=== PATIENT | female | born 1995 | race Caucasian/White ===

== ENCOUNTER 2018-11-20 22:43 | Emergency (ER) | payer SELFPAY, OTHER ==
[2018-11-21] MEDS: ONDANSETRON (ODT) 4 MG TAB ODT (02:30)
== END 2018-11-21 04:12 | disposition home or self-care (01) ==
LOC: FTE 22:43
DX: J06.9 Acute upper respiratory infection, unspecified (principal); F17.210 Nicotine dependence, cigarettes, uncomplicated
CPT/HCPCS: 99283